=== PATIENT | male | born 1985 | race Caucasian/White ===

== ENCOUNTER 2018-12-21 14:43 | Emergency (ER) | payer OTHER ==
[~2018-12-21] VITALS: Ht 190.5 cm; Wt 90.7 kg
[~2018-12-21 14:43] MED LIST: ALBU3IS INH; ALBU4 PO; ALBU90OI; ALBU90OI INH; ALPR.5 PO; AMOCLA875 PO; AMOX500 PO; AZIT500 PO; BENZ100A PO; BUDE.5 NEB; CRUTCH4 USE; CYCL10 PO; DULERA 200 MCG/13 GM INH; HYDACE5 PO; HYDACE5325 PO; HYDR1TAB94 PO; IBUHYD PO; IBUP600 PO; KETO10 PO; PRED10 PO; PRED20 PO; PROC10 PO; Percocet 5-3251 EACH PO; Prednisone20 MG PO; Prednisone50 MG PO; RXALBOI INH; Ventolin Soln3 ML INH; Zantac150 MG PO
[2018-12-21 15:23] LABS: BASOPHILS ABSOLUTE AUTO 0.09 K/mm3 (0.00-0.23); BASOPHILS PERCENT AUTO 1 % (0-2); EOSINOPHILS ABSOLUTE AUTO 0.47 K/mm3 (0.00-0.68); EOSINOPHILS PERCENT AUTO 2 % (0-6); Hematocrit 44.6 % (37.0-53.0); Hemoglobin 14.7 g/dL (13.5-17.5); IMMATURE GRAN ABSOLUTE AUTO 0.09 K/mm3 (0.00-0.10); IMMATURE GRAN PERCENT AUTO 1 % (0-1); LYMPHOCYTES ABSOLUTE AUTO 0.74 K/mm3 (0.84-5.20); LYMPHOCYTES PERCENT AUTO 4 % (21-46); MONOCYTES ABSOLUTE AUTO 1.13 K/mm3 (0.16-1.47); MONOCYTES PERCENT AUTO 6 % (4-13); Mean Corpuscular HGB 29.3 pg (26.0-34.0); Mean Corpuscular Volume 89 fL (80-100); Mean Platelet Volume 10.3 fL (9.1-12.4); NEUTROPHILS ABSOLUTE AUTO 16.91 K/mm3 (1.96-9.15); NEUTROPHILS PERCENT AUTO 87 % (41-73); Platelet Count 312 K/mm3 (150-400); RDW Coefficient Variation 12.5 % (11.7-14.2); Red Blood Cell Count 5.02 M/mm3 (4.30-5.90); White Blood Cell Count 19.43 K/mm3 (4.00-11.30)
[2018-12-21 15:50] LABS: Alanine Aminotransfer (ALT/SGP 23 U/L (12-78); Albumin, Blood 3.8 g/dL (3.4-5.0); Alk Phos 88 U/L (50-136); Anion Gap 11 mmol/L (6-16); Aspartate Aminotrans (AST/SGOT 19 U/L (12-37); Bilirubin, Total 0.6 mg/dL (0.1-1.0); Blood Urea Nitrogen 12 mg/dL (8-24); Bun/Creatinine Ratio 11.7 (12.0-20.0); CO2, Blood 21 mmol/L (21-32); Chloride, Blood 103 mmol/L (98-108); Creatinine, Blood 1.03 mg/dL (0.60-1.20); Glomerular Filtration Rate >60 (60-); Glucose, Blood 124 mg/dL (70-99); Potassium, Blood 4.1 mmol/L (3.5-5.5); Sodium, Blood 135 mmol/L (136-145); Total Protein, Blood 7.8 g/dL (6.4-8.2)
[2018-12-21 16:17] LABS: Influenza A Negative (NEGATIVE); Influenza B Negative (NEGATIVE)
[2018-12-21 18:26] LABS: Glucose, CSF 70 mg/dL (40-70)
[2018-12-21 18:28] LABS: Appearance, CSF Clear (Clear); Color, CSF No Color (No Color); RBC Count, CSF 0 /mm3 (0-0); WBC Count, CSF 1 /mm3 (0-5)
[2018-12-21 18:35] LABS: Appearance, CSF Clear (Clear); Color, CSF No Color (No Color); RBC Count, CSF 1 /mm3 (0-0); WBC Count, CSF 1 /mm3 (0-5)
[2018-12-21 19:49] LABS: Cryptococcus Neoformans/Gattii Not Detected (NOT DETECT); Enterovirus Not Detected (NOT DETECT); Escherichia Coli K1 Not Detected (NOT DETECT); Haemophilus Influenza Not Detected (NOT DETECT); Herpes Simplex Virus 1 Not Detected (NOT DETECT); Herpes Simplex Virus 2 Not Detected (NOT DETECT); Human Herpesvirus 6 Not Detected (NOT DETECT); Human Parechovirus Not Detected (NOT DETECT); Listeria Monocytogenes Not Detected (NOT DETECT); Neisseria Meningitidis Not Detected (NOT DETECT); Streptococcus Agalactiae Not Detected (NOT DETECT); Streptococcus Pneumoniae Not Detected (NOT DETECT); Varicella Zoster Virus Not Detected (NOT DETECT)
[2018-12-21] MEDS ORDERED: Ultram50 MG PO (19:58)
[2018-12-21] MEDS ORDERED: COMPAZINE10 MG PO (19:58)
[2018-12-22] MEDS ORDERED: TRAM50 PO (04:50)
[2018-12-22] MEDS ORDERED: Prochlorperazin10 MG PO (04:51)
== END 2018-12-21 20:11 | disposition home or self-care (01) ==
LOC: ER 14:43
PROVIDERS: Emergency Medicine; Physician Assistant
DX: B34.9 Viral infection, unspecified (principal); J45.909 Unspecified asthma, uncomplicated; F17.210 Nicotine dependence, cigarettes, uncomplicated
CPT/HCPCS: 36415; 62270; 71046; 80053; 82945; 83605; 84157; 85025; 87040; 87070; 87205; 87483; 87804; 89051; 96361-59; 96374-59; 96375-59; 99284-25; J1170; J1885; J2405; J7030

== ENCOUNTER 2018-12-22 04:32 | Inpatient (IN) | payer OTHER ==
[~2018-12-22] VITALS: Ht 188 cm; Wt 89.9 kg
[~2018-12-22 04:32] MED LIST changes: +COMPAZINE10 MG PO; +Ultram50 MG PO
[2018-12-22] MEDS ORDERED: TRAM50 PO (04:50)
[2018-12-22] MEDS ORDERED: Prochlorperazin10 MG PO (04:51)
[2018-12-22 07:41] LABS: BASOPHILS ABSOLUTE AUTO 0.04 K/mm3 (0.00-0.23); BASOPHILS PERCENT AUTO 0 % (0-2); EOSINOPHILS ABSOLUTE AUTO 0.01 K/mm3 (0.00-0.68); EOSINOPHILS PERCENT AUTO 0 % (0-6); Hematocrit 36.2 % (37.0-53.0); Hemoglobin 12.1 g/dL (13.5-17.5); IMMATURE GRAN ABSOLUTE AUTO 0.16 K/mm3 (0.00-0.10); IMMATURE GRAN PERCENT AUTO 1 % (0-1); LYMPHOCYTES ABSOLUTE AUTO 0.38 K/mm3 (0.84-5.20); LYMPHOCYTES PERCENT AUTO 2 % (21-46); MONOCYTES ABSOLUTE AUTO 1.23 K/mm3 (0.16-1.47); MONOCYTES PERCENT AUTO 8 % (4-13); Mean Corpuscular HGB 29.9 pg (26.0-34.0); Mean Corpuscular HGB Conc 33.4 g/dL (31.5-36.5); Mean Corpuscular Volume 89 fL (80-100); Mean Platelet Volume 10.6 fL (9.1-12.4); NEUTROPHILS ABSOLUTE AUTO 14.22 K/mm3 (1.96-9.15); NEUTROPHILS PERCENT AUTO 89 % (41-73); Platelet Count 240 K/mm3 (150-400); RDW Coefficient Variation 12.5 % (11.7-14.2); RDW Standard Deviation 41.1 fL (35.1-46.3); Red Blood Cell Count 4.05 M/mm3 (4.30-5.90); White Blood Cell Count 16.04 K/mm3 (4.00-11.30)
[2018-12-22 08:37] LABS: Creatine Kinase MB 1.8 ng/mL (0.0-3.6); Creatine Kinase MB Index 0.6 (0.0-4.0)
[2018-12-22 10:04] LABS: U Amphetamine Screen DETECTED; U Barbituate Screen Not Detected; U Benzodiazapine Screen Not Detected; U Buprenorphine Screen Not Detected; U Cannabinoids Screen Not Detected; U Cocaine Screen Not Detected; U Methadone Screen Not Detected; U Methamphetamine Screen DETECTED; U Opiates Screen Not Detected; U Oxycodone Screen Not Detected; U Phencyclidine Screen Not Detected; U Propoxyphene Screen Not Detected
--- NOTE | 2018-12-22 14:11 | NUR ---
DR REYES AT BEDSIDE TO SEE PT. DR REYES NOTIFIED OF TELE ST AT 137, PER DR REYES GIVE A 1 TIME DOSE OF CARDIZEM 30MG NOW.
--- NOTE | 2018-12-22 14:14 | NUR ---
PT WAS ADMITTED TO MEDICAL FLOOR AT 13:30. HE ARRIVED WITH AN ELEVATED TEMPERATURE, HR AND RESPIRATIONS. DR. REYES ORDERED TYLENOL AND TELEMETRY. DR. REYES IN WITH THE PT NOW.
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
[2018-12-22 16:11] LABS: CPK Creatine Kinase 432 U/L (39-308)
[2018-12-22 16:34] LABS: Lactate Dehydrogenase (Ld),Bld 254 U/L (100-240)
--- NOTE | 2018-12-22 17:48 | NUR ---
PT WAS ADMITTED TODAY WITH DIAGNOSES OF SEPSIS, PNEUMONIA AND METHAMPHETAMINE USE. HE HAD TWO VEW SCORES OF 7 WITH A TEMP, TACHYPNEA AND TACHYCARDIA. DR. REYES NOTIFIED AND PT TREATED PER HER ORDERS. THE PT IS ON 2L O2 VIA NC. HE HAS AN OCCASSIONAL PRODUCTIVE COUGH WITH YELLOW/BROWN THICK SPUTUM. A POWER GLIDE HAS BEEN INSERTED IN HIS RIGHT UPPER ARM, ALONG WITH A FIELD START IN HIS LEFT AC. MAINTENENCE FLUID IS ORDERED AT 150MLS/HR. PT HAD AN EPISODE OF INCONTINENT DIARRHEA. BED ALARM IS ON SO WE CAN ASSIST PT TO RESTROOM. SCD'S IN PLACE. WILL CONTINUE TO MONITOR.
--- NOTE | 2018-12-22 19:12 | NUR ---
LAB REPORTED THAT STOOL SENT FOR GI PANEL WAS NOT ENOUGH BUT STATES IT IS ENOUGH STOOL FOR A CDIFF, ORDER PLACED FOR CDIFF.
[2018-12-23 04:47] LABS: Hematocrit 38.4 % (37.0-53.0); Hemoglobin 12.7 g/dL (13.5-17.5); Mean Corpuscular HGB 29.8 pg (26.0-34.0); Mean Corpuscular HGB Conc 33.1 g/dL (31.5-36.5); Mean Corpuscular Volume 90 fL (80-100); Mean Platelet Volume 10.7 fL (9.1-12.4); Platelet Count 243 K/mm3 (150-400); RDW Coefficient Variation 12.6 % (11.7-14.2); RDW Standard Deviation 41.5 fL (35.1-46.3); Red Blood Cell Count 4.26 M/mm3 (4.30-5.90); White Blood Cell Count 11.96 K/mm3 (4.00-11.30)
[2018-12-23 05:12] LABS: Anion Gap 9 mmol/L (6-16); Blood Urea Nitrogen 12 mg/dL (8-24); Bun/Creatinine Ratio 14.5 (12.0-20.0); CO2, Blood 24 mmol/L (21-32); Calcium, Blood 8.4 mg/dL (8.5-10.1); Chloride, Blood 106 mmol/L (98-108); Creatinine, Blood 0.83 mg/dL (0.60-1.20); Glomerular Filtration Rate >60 (60-); Glucose, Blood 85 mg/dL (70-99); Potassium, Blood 3.9 mmol/L (3.5-5.5); Sodium, Blood 139 mmol/L (136-145)
--- NOTE | 2018-12-23 06:43 | NUR ---
SHIFT SUMMARY PT IS A 33 Y/O MALE, ADMITTED FOR SEPSIS AND PNA. HE HAS A HX OF METH USE, AND WAS POSITIVE FOR METH AND AMPHETAMINES ON ADMISSION. THE PT SLEPT THROUGH MOST OF THE NIGHT, AND WAS MORE LETHARGIC IN THE AM COMPARED TO THE EVENING. PT'S BREATHING WAS LABORED, WITH A MORE FORCED EXHALE. PER THE [employer], THE PT ALSO HAD A COUPLE OF EPISODES OF APNEA DURING THE NIGHT WHILE HE WAS SLEEPING. HE COMPLAINED OF A HEADACHE, FOR WHICH HE WAS MEDICATED X1 WITH PRN TORADOL. HE ALSO BAD SEVERAL LIQUID BMS DURING THE NIGHT, WHICH WERE NEGATIVE FOR CDIFF. PT DENIED ANY NAUSEA OR ACUTE SOB. NO OTHER ACUTE CHANGES IN PT CONDITION NOTED. WILL CONTINUE TO MONITOR AND TREAT PER EMAR.
--- NOTE | 2018-12-23 12:24 | NUR ---
PCU CHARGE IN ATTEMPTING NEW POWERGLIDE.
--- NOTE | 2018-12-23 17:44 | NUR ---
PT IS SLEEPY BUT AROUSABLE. HE HAS BEEN OFFERED HIS MEALS BUT REFUSED BREAKFAST, GOT A HEADACHE WHEN HE TRIED TO EAT LUNCH AND IS SLEEPING THROUGH DINNER. HE'S HAD VISITORS ALL THROUGHOUT THE DAY. RATE AND RHYTHM IS SINUS RHYTHM AT 84 BPM. OXYGEN SATURATION IN THE HIGH 90'S ON RA. AN 18G POWERGLIDE WAS PLACED TODAY. MAINTANENCE FLUID AT 150ML/HR. BED ALARM IN USE, 1PA TO THE BATHROOM. PT REFUSES TO WEAR ATTENDS. PRODUCTIVE COUGH, EXPELLING YELLO, THICK SPUTUM. WILL CONTINUE TO MONITOR.
[2018-12-24 04:55] LABS: Hemoglobin 12.2 g/dL (13.5-17.5); Mean Corpuscular HGB Conc 32.1 g/dL (31.5-36.5); Mean Corpuscular Volume 91 fL (80-100); Mean Platelet Volume 10.7 fL (9.1-12.4); Platelet Count 264 K/mm3 (150-400); RDW Coefficient Variation 12.6 % (11.7-14.2); White Blood Cell Count 6.87 K/mm3 (4.00-11.30)
[2018-12-24 05:20] LABS: Albumin, Blood 2.6 g/dL (3.4-5.0); Anion Gap 9 mmol/L (6-16); Blood Urea Nitrogen 11 mg/dL (8-24); Bun/Creatinine Ratio 13.3 (12.0-20.0); CO2, Blood 25 mmol/L (21-32); CPK Creatine Kinase 262 U/L (39-308); Calcium, Blood 7.9 mg/dL (8.5-10.1); Chloride, Blood 106 mmol/L (98-108); Creatinine, Blood 0.83 mg/dL (0.60-1.20); Glomerular Filtration Rate >60 (60-); Glucose, Blood 80 mg/dL (70-99); Phosphorus, Blood 2.3 mg/dL (2.5-4.9); Potassium, Blood 3.6 mmol/L (3.5-5.5); Sodium, Blood 140 mmol/L (136-145)
--- NOTE | 2018-12-24 06:41 | NUR ---
SHIFT SUMMARY PT IS A 33 Y/O MALE, ADMITTED FOR SEPSIS AND PNA. HE DID REPORT A HEADACHE DURING THE NIGHT, FOR WHICH HE WAS MEDICATE X 1 WITH PRN REGLAN AND TORADOL. HE DENIED ANY NAUSEA OR SOB, AND SLEPT WELL THROUGH THE NIGHT. PT'S EVENING DIASTOLIC BP WAS ELEVATED AT 104, FOR WHICH HE WAS GIVEN PO CARDIZEM X 1. ALL OTHER VITALS STABLE. PT ON CONTINUOUS FLUIDS AT 150 ML/HOUR. NO OTHER ACUTE CHANGES IN PT CONDITION NOTED. WILL CONTINUE TO MONITOR AND TREAT.
--- NOTE | 2018-12-24 13:54 | NUR ---
Spiritual care visit conducted. Patient was sleeping when I entered the room. I introduced myself to the family and discussed patient's health and family history. I provided companionship to family and emotional support. They responded well and stated that they appreciated the visit.
--- NOTE | 2018-12-24 18:05 | NUR ---
PT IS A0X4, BUT VERY TIRED TODAY. TRIED TO ENCOURAGE PT TO AMBULATE AND FAMILY TRIED WELL, BUT PT INSISTED ON SLEEPING. PT STILL VERY SOB AND WHEEZING THROUGHOUT. PT STATES BREATHING TREATMENTS HAVE BEEN VERY HELPFUL AT THIS TIME. BP HAD A HIGH DISTOLIC OF 130 TREATED PER EMAR AND DISTOLIC DOWN TO 90. WILL MONITOR CLOSELY.
[2018-12-25 05:18] LABS: Albumin, Blood 2.8 g/dL (3.4-5.0); Anion Gap 9 mmol/L (6-16); Blood Urea Nitrogen 10 mg/dL (8-24); CO2, Blood 26 mmol/L (21-32); Calcium, Blood 8.4 mg/dL (8.5-10.1); Chloride, Blood 107 mmol/L (98-108); Glomerular Filtration Rate >60 (60-); Glucose, Blood 92 mg/dL (70-99); Phosphorus, Blood 3.1 mg/dL (2.5-4.9); Potassium, Blood 3.6 mmol/L (3.5-5.5); Sodium, Blood 142 mmol/L (136-145)
--- NOTE | 2018-12-25 07:02 | NUR ---
responsive to verbal stimuli but wanting to sleep, a+o when awake, cooperative saline locked picc line able to draw blood, cap replaced and line flushed, room air, walking rounds completed with day staff
[2018-12-25] MEDS ORDERED: ROBITUSSIN COU237 ML PO (11:29)
[2018-12-25] MEDS ORDERED: AZIT500 PO (11:31)
[2018-12-25] MEDS ORDERED: Bacid1 EACH PO (11:31)
[2018-12-25] MEDS ORDERED: CEFU500T30 PO (11:32)
--- NOTE | 2018-12-25 12:11 | NUR ---
PT DISCHARGED WITH FAMILY TO TRANSPORT AT 1200. PT AOX4 AND COOPERATIVE OF CARE. PT HAD ALL EDUCATIONAL MATERIAL SENT AND ALL PAPERS REVIEWED. MEDICATIONS FAXED TO PHARMACY. PT CONTINUES TO HAVE SOB, BUT HAS IMPROVED GREATLY. PT WAS ABLE TO AMBULATE AROUND THE [place] ON HIS OWN. NO DISTRESS NOTED. PT INSTRUCTED TO TAKE ALL OF HIS MEDICATIONS PRESCRIBED WELL AMBULATE FREQUENTLY TO HELP BREATHING IMPROVE.
== END 2018-12-25 12:06 | disposition home or self-care (01) | DRG 871 ==
LOC: ER 04:32 → MEDS 04:33 → ENPENDDIS 12-25 11:00 → MEDS 12-25 12:06
PROVIDERS: Emergency Medicine; ADMIT Internal Medicine
DX: R65.20 Severe sepsis without septic shock (principal); J18.9 Pneumonia, unspecified organism; J96.01 Acute respiratory failure with hypoxia; C85.90 Non-Hodgkin lymphoma, unspecified, unspecified site; I10 Essential (primary) hypertension; G43.909 Migraine, unspecified, not intractable, without status migrainosus; G44.89 Other headache syndrome; F19.10 Other psychoactive substance abuse, uncomplicated; E86.0 Dehydration; F17.200 Nicotine dependence, unspecified, uncomplicated
CPT/HCPCS: 36415; 70450; 71260; 80048; 80069; 82550; 82553; 83605; 83615; 84145; 84443; 85025; 85027; 87070; 87205; 87493; 88108; 93005; 93010; 94640; 94644; 94667; 94760; 96361-59; 96365-59; 96375-59; 99285-25; C1751; G0378; J0456; J0696; J1200; J1630; J1885; J2060; J2765; J7030; J7050; J7060; J7120; Q9967

== ENCOUNTER 2020-10-30 00:29 | Emergency (ER) | payer OTHER ==
[~2020-10-30] VITALS: Ht 190.5 cm; Wt 97.5 kg
[~2020-10-30 00:29] MED LIST changes: +Bacid1 EACH PO; +CEFU500T30 PO; +Prochlorperazin10 MG PO; +ROBITUSSIN COU237 ML PO; +TRAM50 PO
[2020-10-30] MEDS ORDERED: AMOCLA875 PO (01:15)
== END 2020-10-30 01:53 | disposition home or self-care (01) ==
LOC: ER 00:29
DX: K02.9 Dental caries, unspecified (principal); F17.210 Nicotine dependence, cigarettes, uncomplicated
CPT/HCPCS: 99283

== ENCOUNTER 2022-06-18 00:58 | Emergency (ER) | payer OTHER ==
[~2022-06-18] VITALS: Ht 190.5 cm; Wt 93.0 kg
[~2022-06-18 00:58] MED LIST changes: +NICO21TP TOP
== END 2022-06-18 05:05 | disposition home or self-care (01) ==
LOC: ER 00:58
DX: G89.18 Other acute postprocedural pain (principal); M79.672 Pain in left foot; J45.909 Unspecified asthma, uncomplicated; F17.210 Nicotine dependence, cigarettes, uncomplicated; Z89.432 Acquired absence of left foot
CPT/HCPCS: 96372; 99283-25